=== PATIENT | female | born 1945 | race Caucasian/White ===

== ENCOUNTER 2023-01-07 18:05 | Observation (INO) | payer MEDICARE ==
[~2023-01-07] VITALS: Ht 162.6 cm; Wt 82.4 kg
[~2023-01-07 18:05] MED LIST: AMLO-183 PO; AMLO1TAB24 PO; ASPI81TA26 PO; CALCD50TA PO; CEFD300C41 PO; DILT180C3; DYAZ37.5; FURO20TA2; KEFL500C; LOPR50TA; LOSA100T46 PO; MAXZTAB PO; METF-838 PO; METF500T13 PO; METO50TA7 PO; PERC7.5T8; PRAV10TA3 PO; VITA100093 PO; [UNRECOGNIZED DRUG - CODE] PO
[2023-01-07 19:02] LABS: APPEARANCE, URINE CLOUDY (CLEAR); BACTERIA, URINE AUTO 1+ (NEGATIVE); BILIRUBIN, URINE AUTO NEGATIVE (NEGATIVE); BLOOD, URINE BLOOD 2+ (NEGATIVE); COLOR, URINE AMBER (YELLOW); GLUCOSE, URINE (UA) AUTO NEGATIVE (NEGATIVE); KETONE, URINE AUTO TRACE mg/dL (NEGATIVE); LEUKOCYTE ESTERASE, URINE AUTO 3+ (NEGATIVE); MUCUS, URINE SMALL (NEGATIVE); NITRITE, URINE AUTO POSITIVE (NEGATIVE); PROTEIN, URINE AUTO 2+ mg/dL (NEGATIVE); RBC, URINE AUTO TNTC /HPF (0-3); SQUAMOUS EPITHELIAL CELL UR AU 23 /HPF (0-6); UROBILINOGEN, URINE AUTO 0.2 mg/dL (0.0-2.0); WBC, URINE AUTO TNTC /HPF (0-3)
[2023-01-07 19:08] LABS: BASO # 0.1 10^3/uL (0.0-0.2); BASO % 0.7 % (0.0-1.0); EOS # 0.4 10^3/uL (0.0-0.5); EOS % 3.1 % (0.0-3.0); HEMATOCRIT 34.2 % (36.0-47.0); HEMOGLOBIN 11.4 g/dl (12.0-15.5); LYMPH # 4.5 10^3/uL (1.5-5.0); LYMPH % 33.8 % (24.0-44.0); MEAN CORPUSCULAR HEMOGLOBIN 31.5 pg (27.0-33.0); MEAN CORPUSCULAR HGB CONC 33.3 g/dl (32.0-36.5); MEAN CORPUSCULAR VOLUME 94.5 fl (80.0-96.0); MONO # 1.1 10^3/uL (0.0-0.8); MONO % 8.2 % (2.0-8.0); NEUTROPHILS # 6.9 10^3/uL (1.5-8.5); NEUTROPHILS % 51.8 % (36.0-66.0); PLATELET COUNT, AUTOMATED 348 10^3/uL (150-450); RED BLOOD COUNT 3.62 10^6/uL (4.00-5.40); WHITE BLOOD COUNT 13.4 10^3/uL (4.0-10.0)
[2023-01-07 19:30] LABS: CALCIUM LEVEL 9.4 MG/DL (8.3-10.6); CREATININE FOR GFR 1.42 MG/DL (0.55-1.30); GLOMERULAR FILTRATION RATE 38.2 (>39); POTASSIUM SERUM 3.6 MMOL/L (3.5-5.1)
[2023-01-07] MEDS ORDERED: NS 1,000 ML IV ONE (20:30)
[2023-01-07] MEDS ORDERED: MORPHINE 4 MG/ML 1ML VIAL IV ONE (20:30)
[2023-01-07] MEDS ORDERED: ONDANSETRON 4MG 2ML VIAL IV ONE (20:30)
[2023-01-07] MEDS ORDERED: cefTRIAXone SOD 1 GM in D5W MINI-BAG PLUS 50 ML IV ONE (20:30)
[2023-01-07 21:59] LABS: RSV AMPLIFICATION NEGATIVE (NEGATIVE)
[2023-01-07] MEDS ORDERED: DEXTROSE 50% 50ML SYRINGE IV PRN (23:40)
[2023-01-07] MEDS ORDERED: ONDANSETRON 4MG 2ML VIAL IV PRN (23:40)
[2023-01-07] MEDS ORDERED: GLUCOSE 4GM CHEW TABLET PO PRN (23:40)
[2023-01-07] MEDS ORDERED: GLUCAGON INJ 1MG VIAL SC PRN (23:40)
[2023-01-08] MEDS ORDERED: CEFD300CAP PO (00:26)
[2023-01-08] MEDS ORDERED: HOME MED LIST COMPLETE! XX SCH (00:30)
[2023-01-08 00:53] VITALS: BP 140/85; TEMP 97.3; O2SAT 94
[2023-01-08] MEDS: LR 1,000 ML IV SCH ×2 (01:00→10:26)
[2023-01-08] MEDS: ACETAMINOPHEN TAB 650MG DOSE (2X325MG) PO PRN ×2 (02:14→18:36)
[2023-01-08] MEDS: MORPHINE 2 MG/ML 1ML VIAL IV PRN ×2 (03:24→08:11)
[2023-01-08 06:03] VITALS: BP 135/86; TEMP 98.4; O2SAT 91
[2023-01-08] MEDS: HEPARIN SOD (PORCINE) 5000UNITS/ML 1ML VIAL/SYRINGE SC SCH ×3 (06:04→21:28)
[2023-01-08 06:11] LABS: HEMATOCRIT 32.1 % (36.0-47.0); HEMOGLOBIN 9.9 g/dl (12.0-15.5); MEAN CORPUSCULAR HEMOGLOBIN 30.6 pg (27.0-33.0); MEAN CORPUSCULAR HGB CONC 30.8 g/dl (32.0-36.5); MEAN CORPUSCULAR VOLUME 99.1 fl (80.0-96.0); PLATELET COUNT, AUTOMATED 325 10^3/uL (150-450); RED BLOOD COUNT 3.24 10^6/uL (4.00-5.40); WHITE BLOOD COUNT 11.2 10^3/uL (4.0-10.0)
[2023-01-08 06:30] LABS: CALCIUM LEVEL 8.4 MG/DL (8.3-10.6); CREATININE FOR GFR 1.17 MG/DL (0.55-1.30); GLOMERULAR FILTRATION RATE 47.7 (>39); MAGNESIUM LEVEL 1.6 MG/DL (1.8-2.4)
[2023-01-08 07:24] LABS: PROCALCITONIN 1.07 ng/ml
[2023-01-08] MEDS: MAG SULF 1GM/100ML (MAG RUN) 1 GM in IV 1 EA IV SCH ×2 (08:00→10:26)
[2023-01-08] MEDS: INSULIN LISPRO (NovoLOG) PER UNIT SC SCH ×3 (08:00→17:16)
[2023-01-08] MEDS: DOCUSATE SODIUM 100MG CAPSULE PO SCH ×2 (08:01→20:52)
[2023-01-08] MEDS ORDERED: LOSARTAN 50MG TABLET PO SCH (09:00)
[2023-01-08 14:00] VITALS: BP 121/91; TEMP 98.4; O2SAT 92
[2023-01-08 19:53] VITALS: BP 136/84; TEMP 97.2; O2SAT 94
[2023-01-08] MEDS ORDERED: cefTRIAXone SOD 1 GM in D5W MINI-BAG PLUS 50 ML IV SCH (20:00)
[2023-01-08] MEDS ORDERED: CALCIUM CARBONATE 500 MG CHEW U/D PO PRN (20:00)
[2023-01-08] MEDS ORDERED: PRAVASTATIN 10 MG TAB PO SCH (21:00)
[2023-01-08] MEDS ORDERED: ASPIRIN 81MG ENTERIC TABLET PO SCH (21:00)
[2023-01-08] MEDS ORDERED: INSULIN LISPRO (NovoLOG) PER UNIT SC SCH (21:00)
[2023-01-08] MEDS ORDERED: FUROSEMIDE 20MG/2ML VIAL IV ONE (22:05)
[2023-01-09] MEDS: HEPARIN SOD (PORCINE) 5000UNITS/ML 1ML VIAL/SYRINGE SC SCH (06:00)
[2023-01-09 06:33] VITALS: BP 151/82; TEMP 96.7; O2SAT 91
[2023-01-09] MEDS ORDERED: MAG SULF 1GM/100ML (MAG RUN) 1 GM in IV 1 EA IV ONE (06:50)
[2023-01-09] MEDS ORDERED: FUROSEMIDE 20MG/2ML VIAL IV ONE (07:55)
[2023-01-09] MEDS: DOCUSATE SODIUM 100MG CAPSULE PO SCH (08:16)
[2023-01-09] MEDS: INSULIN LISPRO (NovoLOG) PER UNIT SC SCH ×2 (08:16→12:16)
[2023-01-09 08:19] LABS: BASO # 0.1 10^3/uL (0.0-0.2); BASO % 0.9 % (0.0-1.0); EOS # 0.5 10^3/uL (0.0-0.5); EOS % 4.3 % (0.0-3.0); HEMOGLOBIN 11.7 g/dl (12.0-15.5); LYMPH # 3.5 10^3/uL (1.5-5.0); MEAN CORPUSCULAR HEMOGLOBIN 31.7 pg (27.0-33.0); MEAN CORPUSCULAR HGB CONC 33.4 g/dl (32.0-36.5); MEAN CORPUSCULAR VOLUME 94.9 fl (80.0-96.0); MONO # 0.7 10^3/uL (0.0-0.8); MONO % 5.8 % (2.0-8.0); NEUTROPHILS # 6.7 10^3/uL (1.5-8.5); NEUTROPHILS % 57.9 % (36.0-66.0); PLATELET COUNT, AUTOMATED 400 10^3/uL (150-450); RED BLOOD COUNT 3.69 10^6/uL (4.00-5.40); WHITE BLOOD COUNT 11.6 10^3/uL (4.0-10.0)
[2023-01-09 08:45] LABS: CALCIUM LEVEL 9.9 MG/DL (8.3-10.6); CREATININE FOR GFR 1.08 MG/DL (0.55-1.30); GLOMERULAR FILTRATION RATE 52.4 (>39); MAGNESIUM LEVEL 1.9 MG/DL (1.8-2.4); POTASSIUM SERUM 3.8 MMOL/L (3.5-5.1)
[2023-01-09] MEDS ORDERED: FURO20TA2 PO (09:40)
[2023-01-09] MEDS ORDERED: LEVO1TAB40 PO (09:40)
[2023-01-09] MEDS ORDERED: POTA-165 PO ×2 (09:40→10:01)
== END 2023-01-09 12:40 | disposition home or self-care (01) ==
LOC: M ED 18:05 → M ED INP 18:06 → M MS5PR 01-08 01:00
PROVIDERS: ADMIT Internal Medicine; ATTEND Internal Medicine
DX: R10.9 Unspecified abdominal pain (principal); R82.71 Bacteriuria; B96.20 Unspecified Escherichia coli [E. coli] as the cause of diseases classified elsewhere; N17.9 Acute kidney failure, unspecified; Z96.0 Presence of urogenital implants; N20.0 Calculus of kidney; E11.9 Type 2 diabetes mellitus without complications; I10 Essential (primary) hypertension; E78.5 Hyperlipidemia, unspecified; Z86.79 Personal history of other diseases of the circulatory system; Z86.19 Personal history of other infectious and parasitic diseases; E87.70 Fluid overload, unspecified; R91.8 Other nonspecific abnormal finding of lung field; Z87.442 Personal history of urinary calculi; Z88.8 Allergy status to other drugs, medicaments and biological substances; Z88.1 Allergy status to other antibiotic agents; Z79.899 Other long term (current) drug therapy; Z79.82 Long term (current) use of aspirin; Z79.2 Long term (current) use of antibiotics; Z79.84 Long term (current) use of oral hypoglycemic drugs
CPT/HCPCS: 36415; 71045; 74176; 80048; 81001; 83605; 83735; 84145; 85025; 85027; 87040; 87086; 87631; 96361; 96365; 96372; 96375; 96376; 99284; G0378; J0696; J1815; J1940; J2405; J3475

== ENCOUNTER 2023-02-06 06:14 | Day surgery (SDC) | payer MEDICARE ==
[~2023-02-06] VITALS: Ht 162.6 cm; Wt 80.3 kg
[~2023-02-06 06:14] MED LIST changes: +CEFD300CAP PO; +FURO20TA2 PO; +LEVO1TAB40 PO; +POTA-165 PO; +ceFAZolin SOD 2 GM in IV 1 EA IV ONE
[2023-02-06] MEDS ORDERED: LR 1,000 ML IV SCH ×2 (06:45→09:00)
[2023-02-06] MEDS ORDERED: ONDANSETRON 4MG 2ML VIAL As Ordered ONE (07:02)
[2023-02-06] MEDS ORDERED: propofoL 200 MG/20 ML VIAL As Ordered ONE (07:02)
[2023-02-06] MEDS ORDERED: fentaNYL 100 MCG/2 ML INJECTION As Ordered ONE ×2 (07:03→08:04)
[2023-02-06] MEDS ORDERED: LIDOCAINE 2% 100MG/5ML SDV (FOR ANES.) As Ordered ONE (07:03)
[2023-02-06] MEDS ORDERED: ISOVUE-300 61% 100ML VIAL As Ordered ONE (07:08)
[2023-02-06] MEDS ORDERED: MACR100C43 PO (08:52)
[2023-02-06] MEDS ORDERED: PYRI1TAB5 PO (08:52)
[2023-02-06] MEDS ORDERED: OXYB5TAB10 PO (08:52)
[2023-02-06] MEDS ORDERED: ONDANSETRON 4MG 2ML VIAL IV PRN (09:00)
[2023-02-06] MEDS ORDERED: fentaNYL 100 MCG/2 ML INJECTION IV PRN (09:00)
[2023-02-06] MEDS ORDERED: METOCLOPRAMIDE INJ 10MG/2ML VIAL IV PRN (09:55)
[2023-02-06 10:40] VITALS: BP 123/80; TEMP 97.7; O2SAT 94
== END 2023-02-06 11:18 | disposition home or self-care (01) ==
LOC: M SDC 06:14
PROVIDERS: ATTEND Urology
DX: N20.2 Calculus of kidney with calculus of ureter (principal); N28.89 Other specified disorders of kidney and ureter; I45.4 Nonspecific intraventricular block; E11.9 Type 2 diabetes mellitus without complications; E78.00 Pure hypercholesterolemia, unspecified; Z87.442 Personal history of urinary calculi; Z88.8 Allergy status to other drugs, medicaments and biological substances; Z88.1 Allergy status to other antibiotic agents; Z79.899 Other long term (current) drug therapy; Z79.82 Long term (current) use of aspirin
CPT/HCPCS: 52356; 76000; 87088; C1769; C2617; J0690; J1100; J2405; J3010; Q9967

== ENCOUNTER 2023-06-29 10:15 | Inpatient (IN) | payer MEDICARE ==
[~2023-06-29] VITALS: Ht 162.6 cm; Wt 71.5 kg
[~2023-06-29 10:15] MED LIST changes: +ALDA25TA2 PO; +CARV3.12 PO; +CEFD1CAP9 PO; -CEFD300C41 PO; +CHOL25TA2 PO; +EZET10TA58 PO; +FURO40TA2 PO; +FURO80TA2 PO; +GLIP5TAB17 PO; +IRBE75TA4 PO; +JARD1TAB PO; +MACR100C43 PO; +METO1TAB32 PO; +OCUVTAB4 PO; +OXYB5TAB11 PO; +POTA-298 PO; +PYRI1TAB5 PO; -ceFAZolin SOD 2 GM in IV 1 EA IV ONE
[2023-06-29 12:33] LABS: BASO # 0.1 10^3/uL (0.0-0.2); BASO % 0.8 % (0.0-1.0); EOS # 0.5 10^3/uL (0.0-0.5); HEMATOCRIT 39.4 % (36.0-47.0); HEMOGLOBIN 12.7 g/dl (12.0-15.5); LYMPH # 2.7 10^3/uL (1.5-5.0); LYMPH % 21.7 % (24.0-44.0); MEAN CORPUSCULAR HEMOGLOBIN 29.1 pg (27.0-33.0); MEAN CORPUSCULAR HGB CONC 32.2 g/dl (32.0-36.5); MEAN CORPUSCULAR VOLUME 90.2 fl (80.0-96.0); MONO % 8.1 % (2.0-8.0); NEUTROPHILS # 7.9 10^3/uL (1.5-8.5); PLATELET COUNT, AUTOMATED 371 10^3/uL (150-450); RED BLOOD COUNT 4.37 10^6/uL (4.00-5.40); WHITE BLOOD COUNT 12.2 10^3/uL (4.0-10.0)
[2023-06-29 12:59] LABS: BILIRUBIN,DIRECT 0.2 MG/DL (<0.4); BILIRUBIN,TOTAL 0.5 MG/DL (0.3-1.2); CALCIUM LEVEL 10.6 MG/DL (8.3-10.6); CREATININE FOR GFR 1.36 MG/DL (0.55-1.30); GLOMERULAR FILTRATION RATE 40.1 (>39); POTASSIUM SERUM 4.3 MMOL/L (3.5-5.1); TOTAL PROTEIN 6.6 G/DL (5.7-8.2)
[2023-06-29] MEDS ORDERED: cefTRIAXone SOD 1 GM in D5W MINI-BAG PLUS 50 ML IV ONE (14:35)
[2023-06-29] MEDS ORDERED: ISOVUE-370 76% 100ML VIAL As Ordered ONE (14:36)
[2023-06-29] MEDS ORDERED: MED REC IN PROGRESS XX SCH (15:45)
[2023-06-29] MEDS ORDERED: NS 1,000 ML IV ONE (15:45)
[2023-06-29] MEDS ORDERED: TAMSULOSIN 0.4 MG CAP PO ONE (15:45)
[2023-06-29] MEDS ORDERED: GLIP5TAB20 PO (15:57)
[2023-06-29] MEDS ORDERED: FURO20TA2 PO (15:57)
[2023-06-29] MEDS ORDERED: SPIR-10 PO (15:57)
[2023-06-29] MEDS ORDERED: JARD1TAB3 PO (15:57)
[2023-06-29 15:59] LABS: RSV AMPLIFICATION NEGATIVE (NEGATIVE)
[2023-06-29] MEDS ORDERED: CARV6.25 PO (15:59)
[2023-06-29] MEDS ORDERED: HOME MED LIST COMPLETE! XX SCH (16:05)
[2023-06-29] MEDS ORDERED: NS 1,000 ML IV SCH (18:05)
[2023-06-29 19:49] VITALS: BP 111/68; TEMP 97.9; O2SAT 96
[2023-06-29] MEDS ORDERED: CARVedilol 6.25 MG TAB PO ONE (20:30)
[2023-06-29] MEDS ORDERED: SPIRONOLACTONE 12.5MG PER 1/2 TABLET PO ONE (20:30)
[2023-06-29] MEDS: SPIRONOLACTONE 12.5MG PER 1/2 TABLET PO SCH (21:20)
[2023-06-29] MEDS: CARVedilol 6.25 MG TAB PO SCH (21:20)
[2023-06-29] MEDS: ASPIRIN 81MG ENTERIC TABLET PO SCH (21:21)
[2023-06-29] MEDS: EZETIMIBE 10MG TABLET (ZETIA) PO SCH (21:21)
[2023-06-29] MEDS: PRAVASTATIN 10 MG TAB PO SCH (21:22)
[2023-06-29] MEDS: DOCUSATE SODIUM 100MG CAPSULE PO SCH (21:22)
[2023-06-29] MEDS ORDERED: ACETAMINOPHEN TAB 650MG DOSE (2X325MG) PO PRN (21:45)
[2023-06-30 06:07] VITALS: BP 106/67; TEMP 98.2; O2SAT 97
[2023-06-30 06:50] LABS: HEMATOCRIT 37.1 % (36.0-47.0); HEMOGLOBIN 11.6 g/dl (12.0-15.5); MEAN CORPUSCULAR HEMOGLOBIN 29.1 pg (27.0-33.0); MEAN CORPUSCULAR HGB CONC 31.3 g/dl (32.0-36.5); PLATELET COUNT, AUTOMATED 361 10^3/uL (150-450); RED BLOOD COUNT 3.99 10^6/uL (4.00-5.40); WHITE BLOOD COUNT 9.8 10^3/uL (4.0-10.0)
[2023-06-30 07:47] LABS: ALBUMIN 2.6 G/DL (3.2-5.2); BILIRUBIN,TOTAL 0.4 MG/DL (0.3-1.2); CALCIUM LEVEL 9.8 MG/DL (8.3-10.6); CREATININE FOR GFR 1.23 MG/DL (0.55-1.30); GLOMERULAR FILTRATION RATE 45.1 (>39); POTASSIUM SERUM 4.5 MMOL/L (3.5-5.1); TOTAL PROTEIN 5.8 G/DL (5.7-8.2)
[2023-06-30] MEDS: glipiZIDE XL 5 MG TABCR PO SCH ×2 (07:55→16:41)
[2023-06-30] MEDS: CARVedilol 6.25 MG TAB PO SCH (09:00)
[2023-06-30] MEDS: SPIRONOLACTONE 12.5MG PER 1/2 TABLET PO SCH (09:33)
[2023-06-30] MEDS: TAMSULOSIN 0.4 MG CAP PO SCH (09:34)
[2023-06-30] MEDS: DOCUSATE SODIUM 100MG CAPSULE PO SCH ×2 (09:36→20:56)
[2023-06-30] MEDS: ENOXAPARIN 40MG/0.4ML SYRINGE (J1650 PER 10MG) SC SCH (09:36)
[2023-06-30] MEDS ORDERED: FUROSEMIDE 40MG/4ML VIAL IV ONE (12:30)
[2023-06-30 14:00] VITALS: BP 105/70; TEMP 99.1; O2SAT 95
[2023-06-30] MEDS ORDERED: cefTRIAXone SOD 1 GM in D5W MINI-BAG PLUS 50 ML IV SCH (14:00)
[2023-06-30 19:59] VITALS: BP 112/64; TEMP 98.8; O2SAT 94
[2023-06-30] MEDS: ASPIRIN 81MG ENTERIC TABLET PO SCH (20:56)
[2023-06-30] MEDS: EZETIMIBE 10MG TABLET (ZETIA) PO SCH (20:56)
[2023-06-30] MEDS: PRAVASTATIN 10 MG TAB PO SCH (20:56)
[2023-07-01 05:31] VITALS: BP 101/71; TEMP 99.1; O2SAT 92
[2023-07-01 05:39] VITALS: TEMP 97
[2023-07-01] MEDS ORDERED: PROBCAP14 PO (07:12)
[2023-07-01] MEDS ORDERED: CEFD1CAP9 PO (07:12)
[2023-07-01 08:21] LABS: CALCIUM LEVEL 10.3 MG/DL (8.3-10.6); CREATININE FOR GFR 1.1 MG/DL (0.55-1.30); GLOMERULAR FILTRATION RATE 51.3 (>39); POTASSIUM SERUM 4.3 MMOL/L (3.5-5.1)
[2023-07-01 08:30] VITALS: BP 117/70; TEMP 99; O2SAT 96
[2023-07-01 09:00] VITALS: BP 117/70; TEMP 99; O2SAT 96
[2023-07-01] MEDS: ENOXAPARIN 40MG/0.4ML SYRINGE (J1650 PER 10MG) SC SCH (09:00)
[2023-07-01] MEDS ORDERED: cefTRIAXone SOD 1 GM in D5W MINI-BAG PLUS 50 ML IV SCH (09:00)
[2023-07-01] MEDS ORDERED: FLOM0.4C39 PO (09:25)
[2023-07-01] MEDS: SPIRONOLACTONE 12.5MG PER 1/2 TABLET PO SCH (09:31)
[2023-07-01] MEDS: TAMSULOSIN 0.4 MG CAP PO SCH (09:31)
[2023-07-01 09:32] VITALS: BP 117/70
[2023-07-01] MEDS: DOCUSATE SODIUM 100MG CAPSULE PO SCH (09:32)
[2023-07-01] MEDS: CARVedilol 6.25 MG TAB PO SCH (09:32)
[2023-07-01] MEDS: glipiZIDE XL 5 MG TABCR PO SCH (09:33)
== END 2023-07-01 12:20 | disposition home or self-care (01) | DRG 690 ==
LOC: M ED 10:15 → EDBD 10:15 → M ED INP 15:32 → M MS5PR 19:44
PROVIDERS: ADMIT Internal Medicine Nephrology; ATTEND Internal Medicine Nephrology
DX: N39.0 Urinary tract infection, site not specified (principal); I50.42 Chronic combined systolic (congestive) and diastolic (congestive) heart failure; I13.0 Hypertensive heart and chronic kidney disease with heart failure and stage 1 through stage 4 chronic kidney disease, or unspecified chronic kidney disease; J98.11 Atelectasis; N18.30 Chronic kidney disease, stage 3 unspecified; K74.60 Unspecified cirrhosis of liver; I27.20 Pulmonary hypertension, unspecified; I08.3 Combined rheumatic disorders of mitral, aortic and tricuspid valves; N13.6 Pyonephrosis; E78.5 Hyperlipidemia, unspecified; E11.22 Type 2 diabetes mellitus with diabetic chronic kidney disease; I48.0 Paroxysmal atrial fibrillation; D64.9 Anemia, unspecified; L40.9 Psoriasis, unspecified; Z79.82 Long term (current) use of aspirin; Z79.84 Long term (current) use of oral hypoglycemic drugs; Z79.899 Other long term (current) drug therapy; Z88.1 Allergy status to other antibiotic agents; Z88.6 Allergy status to analgesic agent; Z88.8 Allergy status to other drugs, medicaments and biological substances; Z20.822 Contact with and (suspected) exposure to COVID-19

== ENCOUNTER → 2023-07-18 | Outpatient (REF) | payer MEDICARE ==
[~2023-07-18] MED LIST changes: +CARV6.25 PO; +FLOM0.4C39 PO; +GLIP5TAB20 PO; +JARD1TAB3 PO; +PROBCAP14 PO; +SPIR-10 PO
[2023-07-18 11:45] LABS: APPEARANCE, URINE CLEAR (CLEAR); BACTERIA, URINE AUTO NEGATIVE (NEGATIVE); BILIRUBIN, URINE AUTO NEGATIVE (NEGATIVE); BLOOD, URINE BLOOD NEGATIVE (NEGATIVE); COLOR, URINE STRAW (YELLOW); GLUCOSE, URINE (UA) AUTO 3+ mg/dL (NEGATIVE); KETONE, URINE AUTO NEGATIVE (NEGATIVE); LEUKOCYTE ESTERASE, URINE AUTO TRACE (NEGATIVE); NITRITE, URINE AUTO NEGATIVE (NEGATIVE); PROTEIN, URINE AUTO NEGATIVE (NEGATIVE); RBC, URINE AUTO 1 /HPF (0-3); SPECIFIC GRAVITY URINE AUTO 1.007 (1.002-1.035); SQUAMOUS EPITHELIAL CELL UR AU 0 /HPF (0-6); UROBILINOGEN, URINE AUTO 0.2 mg/dL (0.0-2.0); WBC, URINE AUTO 5 /HPF (0-3)
== END ==
LOC: M SMT 10:18
PROVIDERS: ATTEND Urology
DX: N20.1 Calculus of ureter (principal)

== ENCOUNTER → 2023-07-28 | Outpatient (CLI) | payer MEDICARE | LOC: M PLAIMG 10:11 | PROVIDERS: ATTEND Urology | DX: N28.1 Cyst of kidney, acquired (principal); N20.2 Calculus of kidney with calculus of ureter; N20.1 Calculus of ureter ==

== ENCOUNTER → 2023-09-15 | Outpatient (CLI) | payer MEDICARE ==
[~2023-09-15] MED LIST changes: +IRBE75TA11 PO; -IRBE75TA4 PO; -OXYB5TAB11 PO; +OXYB5TAB14 PO
== END ==
LOC: M PLALAB 12:13
PROVIDERS: ATTEND Urology
DX: N20.1 Calculus of ureter (principal)

== ENCOUNTER 2023-09-16 17:29 | Emergency (ER) | payer MEDICARE ==
[~2023-09-16] VITALS: Ht 162.6 cm; Wt 77.3 kg
[2023-09-16 20:14] LABS: BASO # 0.1 10^3/uL (0.0-0.2); BASO % 0.3 % (0.0-1.0); EOS # 0.2 10^3/uL (0.0-0.5); HEMATOCRIT 43.9 % (36.0-47.0); HEMOGLOBIN 14.2 g/dl (12.0-15.5); LYMPH # 2.1 10^3/uL (1.5-5.0); LYMPH % 13.8 % (24.0-44.0); MEAN CORPUSCULAR HEMOGLOBIN 31.6 pg (27.0-33.0); MEAN CORPUSCULAR HGB CONC 32.3 g/dl (32.0-36.5); MEAN CORPUSCULAR VOLUME 97.6 fl (80.0-96.0); MONO # 1.5 10^3/uL (0.0-0.8); MONO % 9.8 % (2.0-8.0); NEUTROPHILS # 11.1 10^3/uL (1.5-8.5); NEUTROPHILS % 74.9 % (36.0-66.0); PLATELET COUNT, AUTOMATED 232 10^3/uL (150-450); WHITE BLOOD COUNT 14.9 10^3/uL (4.0-10.0)
[2023-09-16 20:40] LABS: ALBUMIN 3.6 G/DL (3.2-5.2); BILIRUBIN,DIRECT 0.2 MG/DL (<0.4); BILIRUBIN,TOTAL 0.5 MG/DL (0.3-1.2); CALCIUM LEVEL 10.1 MG/DL (8.3-10.6); CREATININE FOR GFR 1.55 MG/DL (0.55-1.30); GLOMERULAR FILTRATION RATE 34.4 (>39); POTASSIUM SERUM 4.7 MMOL/L (3.5-5.1); TOTAL PROTEIN 7.1 G/DL (5.7-8.2)
[2023-09-16] MEDS ORDERED: cefTRIAXone SOD 1 GM in D5W MINI-BAG PLUS 50 ML IV ONE (21:20)
[2023-09-16] MEDS ORDERED: ISOVUE-370 76% 100ML VIAL As Ordered ONE (21:21)
[2023-09-16] MEDS: NS 1,000 ML IV SCH (22:05)
[2023-09-16] MEDS: cefTRIAXone SOD 2 GM in D5W MINI-BAG PLUS 50 ML IV ONE (22:05)
[2023-09-16] MEDS: KETOROLAC 30 MG/ML 1ML VIAL IV ONE (22:06)
[2023-09-16 22:36] LABS: RSV AMPLIFICATION NEGATIVE (NEGATIVE)
[2023-09-17 00:13] VITALS: BP 131/72; TEMP 98.6; O2SAT 99
== END 2023-09-17 00:29 | disposition short-term general hospital (02) ==
LOC: M ED 17:29
DX: N20.1 Calculus of ureter (principal); N10 Acute pyelonephritis; A41.9 Sepsis, unspecified organism; Z87.442 Personal history of urinary calculi; I50.9 Heart failure, unspecified; I10 Essential (primary) hypertension; Z79.82 Long term (current) use of aspirin; Z79.899 Other long term (current) drug therapy; Z88.1 Allergy status to other antibiotic agents; Z88.8 Allergy status to other drugs, medicaments and biological substances
CPT/HCPCS: 74177; 80048; 80076; 81000; 81015; 83605; 83690; 85025; 87040; 87077; 87086; 87631; 93041; 94760; 96365; 96375; 99284; J0696; J1885; Q9967

== ENCOUNTER 2023-09-25 07:43 | Day surgery (SDC) | payer MEDICARE ==
[~2023-09-25] VITALS: Ht 162.6 cm; Wt 74.8 kg
[2023-09-25] MEDS: ceFAZolin SOD 2 GM in IV 1 EA IV ONE (06:20)
[~2023-09-25 07:43] MED LIST changes: +GLYCOPYRROLATE INJ 0.2 MG/ML 2 ML VIAL As Ordered ONE; +LIDOCAINE 2% 100MG/5ML SDV (FOR ANES.) As Ordered ONE; +MIDAZOLAM INJ 2MG/2ML VIAL As Ordered ONE; +ONDANSETRON 4MG 2ML VIAL As Ordered ONE; +fentaNYL 100 MCG/2 ML INJECTION As Ordered ONE; +propofoL 200 MG/20 ML VIAL As Ordered ONE
[2023-09-25] MEDS ORDERED: LR 1,000 ML IV SCH (08:00)
[2023-09-25] MEDS ORDERED: ACETAMINOPHEN 1000MG 100ML IV BAG As Ordered ONE (09:32)
[2023-09-25] MEDS: ISOVUE-300 61% 100ML VIAL As Ordered ONE (09:39)
[2023-09-25] MEDS ORDERED: ONDANSETRON 4MG 2ML VIAL IV PRN (10:00)
[2023-09-25] MEDS ORDERED: fentaNYL 100 MCG/2 ML INJECTION IV PRN (10:00)
[2023-09-25] MEDS ORDERED: HYDR-3713 PO (10:00)
[2023-09-25] MEDS ORDERED: oxyCODONE 5MG TAB PO PRN (10:00)
[2023-09-25] MEDS ORDERED: MORPHINE 2 MG/ML 1ML VIAL IV PRN (10:00)
[2023-09-25 11:40] VITALS: BP 110/78; TEMP 98; O2SAT 100
== END 2023-09-25 11:43 | disposition home or self-care (01) ==
LOC: M SDC 07:43
PROVIDERS: ATTEND Urology
DX: N20.1 Calculus of ureter (principal); E11.9 Type 2 diabetes mellitus without complications; I50.9 Heart failure, unspecified; I11.0 Hypertensive heart disease with heart failure; Z88.8 Allergy status to other drugs, medicaments and biological substances; Z88.1 Allergy status to other antibiotic agents; Z79.899 Other long term (current) drug therapy
CPT/HCPCS: 52356; 76000; 93005; C1769; C2617; J0131; J0690; J1100; J2250; J2405; J3010; Q9967

== ENCOUNTER → 2024-01-30 | Outpatient (REF) | payer MEDICARE ==
[~2024-01-30] MED LIST changes: -GLYCOPYRROLATE INJ 0.2 MG/ML 2 ML VIAL As Ordered ONE; +HYDR-3713 PO; -LIDOCAINE 2% 100MG/5ML SDV (FOR ANES.) As Ordered ONE; -MIDAZOLAM INJ 2MG/2ML VIAL As Ordered ONE; -ONDANSETRON 4MG 2ML VIAL As Ordered ONE; -fentaNYL 100 MCG/2 ML INJECTION As Ordered ONE; -propofoL 200 MG/20 ML VIAL As Ordered ONE
[2024-01-30 18:05] LABS: ALKALINE PHOSPHATASE 70 U/L (46-116); ALT/SGPT 16 U/L (7.0-40); AST/SGOT < 8 U/L (<34); BILIRUBIN,DIRECT < 0.1 MG/DL (<0.4); BILIRUBIN,TOTAL 0.5 MG/DL (0.3-1.2); TOTAL PROTEIN 6.9 G/DL (5.7-8.2)
== END ==
LOC: M LAB REF 16:50
PROVIDERS: ATTEND Internal Medicine Nephrology
DX: K74.69 Other cirrhosis of liver (principal)

== ENCOUNTER → 2024-03-24 | Outpatient (CLI) | payer MEDICARE | LOC: M RAD 14:04 | PROVIDERS: ATTEND Urology | DX: Z96.0 Presence of urogenital implants (principal); N28.1 Cyst of kidney, acquired ==

== ENCOUNTER → 2025-04-18 | Outpatient (CLI) | payer MEDICARE ==
[~2025-04-18] MED LIST changes: -FLOM0.4C39 PO; +GLIP-318 PO; -GLIP5TAB20 PO; -PRAV10TA3 PO; +PRAV10TA43 PO; +TAMS-18 PO
== END ==
LOC: M PLAIMG 10:33
PROVIDERS: ATTEND Urology
DX: N20.0 Calculus of kidney (principal)